=== PATIENT | female | born 1960 | race Caucasian/White ===

== ENCOUNTER 2017-02-10 08:48 | Day surgery (SDC) | payer OTHER ==
[~2017-02-10] VITALS: Ht 160 cm; Wt 62.4 kg
[2017-02-10 10:06] VITALS: Ht 160 cm; Wt 62.4 kg
[2017-02-10] MEDS ORDERED: FISH OIL (10:09)
[2017-02-10] MEDS ORDERED: SUMATRIPTAN (10:09)
[2017-02-10] MEDS ORDERED: CALCIUM (10:09)
[2017-02-10] MEDS ORDERED: VITAMIN C (10:09)
[2017-02-10 10:31] VITALS: BP 160/73; PULSE 53; RESP 16
[2017-02-10] MEDS ORDERED: MIDAZOLAM 1 MG/ML 2 ML INJ ONE ×2 (11:10)
[2017-02-10] MEDS ORDERED: FENTAnyl 50 MCG/ML VIAL ONE (11:11)
--- NOTE | 2017-02-10 11:29 | OPPN ---
Date/Time of Note Date/Time of Note DATE: 02/10/17 TIME: 11:27 Proc Note GI Procedure Date 02/10/17 Indication: screening/surveillance Pre-procedure Diagnosis screening colonoscopy Post-procedure Diagnosis hemorrhoids Procedure Performed: Colonoscopy Surgeon see signature line Dermatology Specialist none Anesthesia Type: moderate sedation Tourniquet Time none EBL none Transfusion required none Biopsy 1: none Grafts/Implants none Tubes/Drains none Complication(s) none Procedure Description colonoscopy with MOD sedation mild hemorrhoids AMBERLY ROBB MD Feb 10, 2017 11:29
[2017-02-10 11:33] VITALS: BP 122/79; RESP 16
--- NOTE | 2017-02-10 12:16 | GILP ---
DATE OF PROCEDURE: PREOPERATIVE DIAGNOSIS: Screening colonoscopy to rule out colon polyps. POSTOPERATIVE DIAGNOSES: Minimal external hemorrhoids. Minimal internal hemorrhoids. DESCRIPTION OF PROCEDURE: After informed written consent was obtained, the patient was asked to lie on the left lateral side. Intravenous anesthesia was given which included 3 mg Versed and 50 mcg o f fentanyl. When the patient became somnolent, the Olympus video colonoscope was introduced into th e rectum and scope was advanced all the way to the cecum. The entire colon appeared perfectly ella l, no diverticulosis, no polyps noted. Scope was withdrawn from the cecum. On the way out, retrofl exion was performed. Minimal internal hemorrhoids and minimal external hemorrhoids were noted and t he procedure was terminated. PLAN: Recommend repeat colonoscopy in 10 years. Recommend high fiber diet. Dictated By: AMBERLY MILLER/RHINA Conf#: [id number] DID#: [id number]
== END 2017-02-10 16:50 | disposition home or self-care (01) ==
LOC: GIL 08:48
PROVIDERS: ATTEND Internal Medicine Gastroenterology
DX: Z12.11 Encounter for screening for malignant neoplasm of colon (principal); K64.4 Residual hemorrhoidal skin tags; K64.8 Other hemorrhoids
CPT/HCPCS: 45378; J2250; J3010